=== PATIENT | female | born 1950 | race Asian ===

== ENCOUNTER 2023-07-22 18:46 | Inpatient (IN) | payer OTHER ==
[~2023-07-22] VITALS: Ht 170.2 cm; Wt 70.8 kg
[2023-07-22 18:47] VITALS: BP 120/58; PULSE 80; RESP 17; TEMP 98; O2SAT 100
[2023-07-22] MEDS: LORazepam 2 MG/ML VIAL IM STA (19:16)
[2023-07-22] MEDS: diphenhydrAMINE 50 MG/ML VIAL IM ONE (19:20)
[2023-07-22] MEDS: HALOPERIDOL IM 5 MG/ML VIAL IM ONE (19:20)
[2023-07-22] MEDS ORDERED: diphenhydrAMINE 50 MG/ML VIAL ONE (19:40)
[2023-07-22] MEDS ORDERED: LORazepam 2 MG/ML VIAL ONE ×2 (19:40→20:17)
[2023-07-22] MEDS ORDERED: HALOPERIDOL IM 5 MG/ML VIAL ONE (19:40)
[2023-07-22] MEDS: LORazepam 2 MG/ML VIAL IVP ONE (20:24)
[2023-07-22 20:37] LABS: BASOPHILS % (AUTO) 0.7 % (0.0-2.0); EOSINOPHILS # (AUTO) 0.2 K/uL (0-0.4); HEMATOCRIT 37.4 % (36-48); HEMOGLOBIN 12.7 g/dL (12.0-16.0); LYMPHOCYTES % (AUTO) 33.9 % (20.5-51.1); MEAN CORPUSCULAR HEMOGLOBIN 31 pg (27-31); MEAN CORPUSCULAR HGB CONC 34 g/dL (33-37); MEAN CORPUSCULAR VOLUME 91.3 fL (80-94); MONOCYTES # (AUTO) 0.7 K/uL (0.8-1.0); MONOCYTES % (AUTO) 11.1 % (1.7-9.3); NEUTROPHILS # (AUTO) 3.1 K/uL (1.8-7.7); NEUTROPHILS % (AUTO) 51.3 % (42.2-75.2); PLATELET COUNT (AUTO) 363 K/uL (140-450); RED BLOOD CELL COUNT(AUTO) 4.09 MIL/uL (4.20-5.40)
[2023-07-22 21:08] LABS: ANION GAP 10.6 (8-16); CALCIUM 9.6 mg/dL (8.5-10.1); CARBON DIOXIDE 28.7 mmol/L (21-32); CHLORIDE 101 mmol/L (98-107); GLUCOSE 176 mg/dL (74-106); POTASSIUM 3.3 mmol/L (3.5-5.1); SODIUM SERUM 137 mmol/L (136-145); UREA NITROGEN, BLOOD 23 mg/dL (7-18)
[2023-07-22 21:21] LABS: ALANINE AMINOTRANSFERASE 15 U/L (12-78); ALBUMIN 3.7 g/dL (3.4-5.0); ALCOHOL, BLOOD < 3 mg/dL (<10); ALKALINE PHOSPHATASE 106 U/L (50-136); ASPARTATE AMINOTRANSFERASE 19 U/L (15-37); CREATINE KINASE, TOTAL 80 U/L (26-192); SALICYLATE < 2.8 mg/dL (2.8-20.0); TOTAL BILIRUBIN 0.2 mg/dL (0.0-1.0); TOTAL PROTEIN, SERUM 7.3 g/dL (6.4-8.2)
[2023-07-22 21:44] LABS: FREE T4 (FREE THYROXINE) 1.06 ng/dL (0.76-1.46)
[2023-07-22 21:55] LABS: APPEARANCE,URINE CLEAR (CLEAR); BILIRUBIN,URINE NEGATIVE (NEGATIVE); BLOOD, URINE NEGATIVE (NEGATIVE); COLOR,URINE YELLOW (YELLOW); LEUKOCYTE ESTERASE ,URINE TRACE (NEGATIVE); NITRITE, URINE NEGATIVE (NEGATIVE); PROTEIN,URINE NEGATIVE (NEGATIVE); UGLUCOSE NEGATIVE (NEGATIVE); UROBILINOGEN,URINE 0.2 EU/dL (0.2 - 1)
[2023-07-22 21:56] LABS: RBC,URINE 0 /HPF (0-5); WBC,URINE 0-5 /HPF (0-5)
[2023-07-22 21:57] LABS: BACTERIA,URINE 0-2 /HPF (None Seen); MUCUS,URINE None Seen /LPF (None Seen); SQUAMOUS EPITHELIAL CELL,UR 0-3 (FEW) /LPF (0-3 (FEW))
[2023-07-22] MEDS ORDERED: KCL 20 MEQ IN 100 mL PREMIX 200 ML IV PRN (22:30)
[2023-07-22] MEDS ORDERED: MAG SULF 2000 MG/WATER PREMIX 50 ML IV PRN (22:30)
[2023-07-22] MEDS ORDERED: ONDANSETRON 4 MG/2 ML VIAL IVP PRN (22:30)
[2023-07-22] MEDS ORDERED: ACETAMINOPHEN 325 MG TAB PO PRN (22:30)
[2023-07-22] MEDS ORDERED: MORPHINE SULFATE 4 MG/ML SYR IVP PRN (22:30)
[2023-07-22] MEDS: POTASSIUM CHLORIDE 20% 40 MEQ/15 ML UDC PO ONE (23:50)
[2023-07-23] MEDS: LORazepam 2 MG/ML VIAL IVP PRN (00:53)
[2023-07-23] MEDS: ZOLPIDEM 5 MG TAB PO PRN (01:24)
[2023-07-23] MEDS ORDERED: DONE5TAB6 PO (04:07)
[2023-07-23] MEDS ORDERED: HYDR-635 PO (04:07)
[2023-07-23] MEDS ORDERED: MIRT7.5T14 PO (04:07)
[2023-07-23] MEDS ORDERED: LORA-476 PO (04:07)
[2023-07-23] MEDS ORDERED: LISI20TA29 PO (04:07)
[2023-07-23] MEDS ORDERED: OLAN2.5T1 PO (04:07)
[2023-07-23] MEDS ORDERED: ASCO-5 PO (04:07)
[2023-07-23] MEDS: LORazepam 1 MG TAB PO PRN (04:43)
[2023-07-23] MEDS ORDERED: HALOPERIDOL IM 5 MG/ML VIAL IM ONE (04:45)
[2023-07-23] MEDS ORDERED: HALOPERIDOL IM 5 MG/ML VIAL ONE (04:50)
[2023-07-23] MEDS: HALOPERIDOL IM 5 MG/ML VIAL IM SCH (05:01)
[2023-07-23] MEDS: HYDROcodone/APAP 5/325 MG 1 TAB TAB PO PRN (16:03)
[2023-07-23] MEDS: POTASSIUM CHLORIDE 10 MEQ TABER PO PRN (16:31)
[2023-07-23 16:43] LABS: BASOPHILS % (AUTO) 0.8 % (0.0-2.0); EOSINOPHILS # (AUTO) 0.2 K/uL (0-0.4); HEMATOCRIT 36.5 % (36-48); HEMOGLOBIN 12.3 g/dL (12.0-16.0); LYMPHOCYTES # (AUTO) 1.8 K/uL (2.5-16.5); MEAN CORPUSCULAR HEMOGLOBIN 31 pg (27-31); MEAN CORPUSCULAR HGB CONC 34 g/dL (33-37); MEAN CORPUSCULAR VOLUME 91.6 fL (80-94); MONOCYTES # (AUTO) 0.8 K/uL (0.8-1.0); MONOCYTES % (AUTO) 12.7 % (1.7-9.3); NEUTROPHILS # (AUTO) 3.2 K/uL (1.8-7.7); NEUTROPHILS % (AUTO) 53.5 % (42.2-75.2); PLATELET COUNT (AUTO) 317 K/uL (140-450); RED BLOOD CELL COUNT(AUTO) 3.99 MIL/uL (4.20-5.40); RED CELL DISTRIBUTION WIDTH 13.8 % (11.6-13.7)
[2023-07-23 17:04] LABS: ANION GAP 10.1 (8-16); CALCIUM 9.5 mg/dL (8.5-10.1); CARBON DIOXIDE 31.1 mmol/L (21-32); CHLORIDE 103 mmol/L (98-107); GLUCOSE 128 mg/dL (74-106); POTASSIUM 4.2 mmol/L (3.5-5.1); SODIUM SERUM 140 mmol/L (136-145); UREA NITROGEN, BLOOD 23 mg/dL (7-18)
[2023-07-23 17:38] VITALS: RESP 18; O2SAT 100
[2023-07-23 20:00] VITALS: BP 128/53; PULSE 65; RESP 18; TEMP 98.7; O2SAT 95
[2023-07-23] MEDS: MIRTAZAPINE 15 MG TAB PO SCH (20:43)
[2023-07-23] MEDS: OLANZapine 2.5 MG TAB PO SCH (20:43)
[2023-07-24 04:00] VITALS: BP 115/58; PULSE 66; RESP 18; TEMP 97.8; O2SAT 98
[2023-07-24 05:33] LABS: BASOPHILS # (AUTO) 0.1 K/uL (0.00-0.22); BASOPHILS % (AUTO) 1.1 % (0.0-2.0); EOSINOPHILS # (AUTO) 0.2 K/uL (0-0.4); EOSINOPHILS % (AUTO) 2.8 % (0.0-4.0); HEMATOCRIT 36.7 % (36-48); HEMOGLOBIN 12.6 g/dL (12.0-16.0); LYMPHOCYTES # (AUTO) 2.3 K/uL (2.5-16.5); LYMPHOCYTES % (AUTO) 38.7 % (20.5-51.1); MEAN CORPUSCULAR HEMOGLOBIN 32 pg (27-31); MEAN CORPUSCULAR HGB CONC 34 g/dL (33-37); MEAN CORPUSCULAR VOLUME 91.8 fL (80-94); MONOCYTES # (AUTO) 0.5 K/uL (0.8-1.0); MONOCYTES % (AUTO) 8.7 % (1.7-9.3); NEUTROPHILS # (AUTO) 2.9 K/uL (1.8-7.7); NEUTROPHILS % (AUTO) 48.7 % (42.2-75.2); PLATELET COUNT (AUTO) 321 K/uL (140-450); RED CELL DISTRIBUTION WIDTH 14.3 % (11.6-13.7); WHITE BLOOD COUNT (AUTO) 5.9 K/uL (4.8-10.8)
[2023-07-24 05:51] LABS: ANION GAP 9.6 (8-16); CALCIUM 9.5 mg/dL (8.5-10.1); CARBON DIOXIDE 30.7 mmol/L (21-32); CHLORIDE 104 mmol/L (98-107); CREATININE 0.9 mg/dL (0.6-1.3); GLUCOSE 79 mg/dL (74-106); POTASSIUM 4.3 mmol/L (3.5-5.1); SODIUM SERUM 140 mmol/L (136-145); UREA NITROGEN, BLOOD 21 mg/dL (7-18)
[2023-07-24 08:00] VITALS: BP 122/46; PULSE 72; RESP 18; TEMP 97.6; O2SAT 99
[2023-07-24 20:00] VITALS: BP 117/79; PULSE 81; RESP 16; TEMP 97.6; O2SAT 81; O2SAT 98
[2023-07-24] MEDS: CRUSHER, PILL MC ONE (21:11)
[2023-07-25 04:00] VITALS: BP 112/67; PULSE 81; RESP 18; TEMP 97.7; O2SAT 97
[2023-07-25 06:18] LABS: ANION GAP 10.1 (8-16); CALCIUM 9.2 mg/dL (8.5-10.1); CHLORIDE 107 mmol/L (98-107); GLUCOSE 86 mg/dL (74-106); POTASSIUM 4.1 mmol/L (3.5-5.1); SODIUM SERUM 143 mmol/L (136-145); UREA NITROGEN, BLOOD 30 mg/dL (7-18)
[2023-07-25 06:22] LABS: BASOPHILS % (AUTO) 0.7 % (0.0-2.0); EOSINOPHILS # (AUTO) 0.2 K/uL (0-0.4); EOSINOPHILS % (AUTO) 3.3 % (0.0-4.0); HEMOGLOBIN 12.1 g/dL (12.0-16.0); LYMPHOCYTES # (AUTO) 1.8 K/uL (2.5-16.5); LYMPHOCYTES % (AUTO) 34.8 % (20.5-51.1); MEAN CORPUSCULAR HEMOGLOBIN 31 pg (27-31); MEAN CORPUSCULAR HGB CONC 34 g/dL (33-37); MEAN CORPUSCULAR VOLUME 91.9 fL (80-94); MONOCYTES # (AUTO) 0.5 K/uL (0.8-1.0); MONOCYTES % (AUTO) 9.6 % (1.7-9.3); NEUTROPHILS # (AUTO) 2.7 K/uL (1.8-7.7); NEUTROPHILS % (AUTO) 51.6 % (42.2-75.2); PLATELET COUNT (AUTO) 298 K/uL (140-450); RED BLOOD CELL COUNT(AUTO) 3.91 MIL/uL (4.20-5.40); RED CELL DISTRIBUTION WIDTH 14.3 % (11.6-13.7); WHITE BLOOD COUNT (AUTO) 5.2 K/uL (4.8-10.8)
[2023-07-25 11:56] VITALS: BP 101/51; PULSE 87; RESP 18; TEMP 98.3
[2023-07-25 12:20] VITALS: BP 101/51; PULSE 91; RESP 18; TEMP 98.2; O2SAT 99
== END 2023-07-25 14:52 | DRG 640 ==
LOC: MED 18:46 → MTU 22:31 → OBSVTOIN 22:31 → MTU 07-23 16:52
PROVIDERS: ADMIT Student in an Organized Health Care Education/Training Program; ATTEND Student in an Organized Health Care Education/Training Program
DX: E86.1 Hypovolemia (principal); G93.41 Metabolic encephalopathy; R41.0 Disorientation, unspecified; I10 Essential (primary) hypertension; F03.90 Unspecified dementia, unspecified severity, without behavioral disturbance, psychotic disturbance, mood disturbance, and anxiety; F41.9 Anxiety disorder, unspecified; F32.A Depression, unspecified; E78.5 Hyperlipidemia, unspecified; Z79.899 Other long term (current) drug therapy
CPT/HCPCS: 36415; 70450; 71045; 80048; 80076; 81001; 82550; 83735; 84439; 84443; 84484; 85025; 87081; G0480; G0482; J1200; J1630; J1644; J2060